=== PATIENT | male | born 1980 | race Caucasian/White ===

== ENCOUNTER 2017-07-14 09:30 | Emergency (ER) | payer BC ==
--- NOTE | 2017-07-14 10:51 | ER ---
Nurse's Notes [facility] Name: Mayco Gorman Age: 37 yrs Sex: Male : 1980 Arrival Date: 07/14/2017 Time: : Bed 17 Private MD: Diagnosis: Acute pharyngitis Presentation: 07/14 09:35 Presenting complaint: Patient states: c/o sore throat and headache that started last rb1 night with fever and chills. Transition of care: patient was not received from another setting of care. Onset of symptoms was July 13, 2017. Initial Sepsis Screen: Does the patient meet any 2 criteria? No. Patient's initial sepsis screen is negative. Does the patient have a suspected source of infection? No. Patient's initial sepsis screen is negative. Care prior to arrival: None. 09:35 Method Of Arrival: Ambulatory rb1 09:35 Acuity: ARABELLA 3 rb1 Triage Assessment: :35 General: Appears uncomfortable, obese, Behavior is calm, cooperative. General: Reports rb1 chills for fever for feeling ill for 12-24 hours. Pain: Complains of pain in Entire head and throat Pain currently is 8 out of 10 on a pain scale. Pain began 1 day ago. EENT: Throat is reddened has enlarged tonsils. Neuro: Level of Consciousness is awake, alert, obeys commands, Oriented to person, place, time, situation. Cardiovascular: Capillary refill < 3 seconds is brisk in bilateral fingers. Respiratory: Reports cough that is non-productive, Airway is patent Respiratory effort is even, unlabored, Respiratory pattern is regular, symmetrical. GI: No signs and/or symptoms were reported involving the gastrointestinal system. : No signs and/or symptoms were reported regarding the genitourinary system. Derm: Skin is pink, warm \T\ dry. Historical: - Allergies: 09:35 No Known Allergies; rb1 - Home Meds: :35 None [Active]; rb1 - PMHx: :35 Pneumonia; Bronchitis; rb1 - PSHx: :35 Adenoids; rb1 - Immunization history:: Adult Immunizations up to date. - Social history:: Smoking status: Patient uses tobacco products, smokes one pack cigarettes per day. Screenin:35 Abuse screen: Denies threats or abuse. Nutritional screening: loss of appetite. . rb1 Tuberculosis screening: No symptoms or risk factors identified. Fall Risk None identified. Assessment: 09:35 General: See triage assessment. rb1 10:30 Reassessment: Patient appears in no apparent distress at this time. No changes from rb1 previously documented assessment. Vital Signs: 09:35 BP 152 / 94; Pulse 107; Resp 19; Temp 98.7(O); Pulse Ox 95% on R/A; Weight 124.74 kg rb1 (R); Height 5 ft. 11 in. (180.34 cm) (R); Pain 8/10; 10:30 BP 152 / 92; Pulse 92; Resp 18; Pulse Ox 98% on R/A; rb1 09:35 Body Mass Index 38.35 (124.74 kg, 180.34 cm) rb1 ED Course: 09:31 Patient arrived in ED. as 09:34 Casimiro Christie NP is PHCP. pm1 09:34 Kurtis Bryant MD is Attending Physician. pm1 09:35 Arm band placed on right wrist. rb1 09:35 Patient has correct armband on for positive identification. Bed in low position. Call rb1 light in reach. Side rails up X 1. Pulse ox on. NIBP on. 09:39 Susie Caceres, RN is Primary Nurse. rb1 09:41 Triage completed. rb1 09:55 Flu Sent. rb1 09:55 Strep Sent. rb1 11:01 No provider procedures requiring assistance completed. Patient did not have IV access rb1 during this emergency room visit. Administered Medications: No medications were administered Outcome: 10:51 Discharge ordered by . pm1 11:01 Discharged to home ambulatory, with significant other. rb1 11:01 Condition: stable 11:01 Discharge instructions given to patient, Instructed on discharge instructions, follow up and referral plans. medication usage, Demonstrated understanding of instructions, follow-up care, medications, Prescriptions given X 1. 11:02 Patient left the ED. rb1 Signatures: Maria Dallas as Susie Caceres, RN RN rb1 Casimiro Christie NP SUG[employer] PLANTER pm1
--- NOTE | 2017-07-14 10:52 | EDPHYS ---
Physician Documentation [facility] Name: Mayco Gorman Age: 37 yrs Sex: Male : 1980 Arrival Date: 07/14/2017 Time: 09:31 Bed 17 Private MD: ED Physician Kurtis Bryant HPI: 07/14 10:35 This 37 yrs old Male presents to ER via Ambulatory with complaints of Flu pm1 Symptoms. 10:35 The patient presents with sore throat. The patient describes throat pain as raw, pm1 scratchy. Onset: The symptoms/episode began/occurred last night. Severity of symptoms: in the emergency department the symptoms are actually worse. Modifying factors: The symptoms are alleviated by over the counter medications, NSAIDs, the symptoms are aggravated by fluids, foods, swallowing, Patient's oral intake status: good. Associated signs and symptoms: Pertinent positives: chills, cough, flu-like symptoms, Sore throat Pertinent negatives diarrhea, nausea, vomiting. The patient has not experienced similar symptoms in the past. The patient has not recently seen a physician. Two of his children tested positive for strep and are currently taking antibiotics for it. Historical: - Allergies: 09:35 No Known Allergies; rb1 - Home Meds: 09:35 None [Active]; rb1 - PMHx: 09:35 Pneumonia; Bronchitis; rb1 - PSHx: 09:35 Adenoids; rb1 - Immunization history:: Adult Immunizations up to date. - Social history:: Smoking status: Patient uses tobacco products, smokes one pack cigarettes per day. ROS: 10:35 Eyes: Negative for injury, pain, redness, and discharge. pm1 10:35 Neck: Negative for injury, pain, and swelling, Cardiovascular: Negative for chest pain, palpitations, and edema. 10:35 Abdomen/GI: Negative for abdominal pain, nausea, vomiting, diarrhea, and constipation, Back: Negative for injury and pain, : Negative for injury, bleeding, discharge, and swelling, MS/Extremity: Negative for injury and deformity, Skin: Negative for injury, rash, and discoloration, Neuro: Negative for headache, weakness, numbness, tingling, and seizure. 10:35 Constitutional: Positive for body aches, chills, fever, Negative for poor PO intake. 10:35 ENT: Positive for sore throat, Negative for ear pain, rhinorrhea. 10:35 Respiratory: Positive for cough, with no reported sputum, Negative for dyspnea on exertion, shortness of breath, sputum production, wheezing. Exam: 10:35 Constitutional: This is a well developed, well nourished patient who is awake, alert, pm1 and in no acute distress. Head/Face: Normocephalic, atraumatic. Eyes: Pupils equal round and reactive to light, extra-ocular motions intact. Lids and lashes normal. Conjunctiva and sclera are non-icteric and not injected. Cornea within normal limits. Periorbital areas with no swelling, redness, or edema. 10:35 Chest/axilla: Normal chest wall appearance and motion. Nontender with no deformity. No lesions are appreciated. Cardiovascular: Regular rate and rhythm with a normal S1 and S2. No gallops, murmurs, or rubs. Normal PMI, no JVD. No pulse deficits. 10:35 Respiratory: Lungs have equal breath sounds bilaterally, clear to auscultation and percussion. No rales, rhonchi or wheezes noted. No increased work of breathing, no retractions or nasal flaring. Abdomen/GI: Soft, non-tender, with normal bowel sounds. No distension or tympany. No guarding or rebound. No evidence of tenderness throughout. Back: No spinal tenderness. No costovertebral tenderness. Full range of motion. Skin: Warm, dry with normal turgor. Normal color with no rashes, no lesions, and no evidence of cellulitis. MS/ Extremity: Pulses equal, no cyanosis. Neurovascular intact. Full, normal range of motion. 10:35 ENT: External ear(s): are unremarkable, Ear canal(s): are normal, TM's: are normal, Nose: is normal, Mouth: is normal, Posterior pharynx: Airway: normal, no evidence of obstruction, patent, Tonsils: bilaterally enlarged, with erythema, no exudate, no ulcerations, peritonsillar mass, is not appreciated, pooling of secretions, is not appreciated. 10:35 Neck: External neck: is normal, Lymph nodes: lymphadenopathy is appreciated, anterior cervical nodes. 10:35 Neuro: Orientation: is normal, Motor: moves all fours, Gait: is steady, at a normal pace, without difficulty. Vital Signs: 09:35 BP 152 / 94; Pulse 107; Resp 19; Temp 98.7(O); Pulse Ox 95% on R/A; Weight 124.74 kg rb1 (R); Height 5 ft. 11 in. (180.34 cm) (R); Pain 8/10; 10:30 BP 152 / 92; Pulse 92; Resp 18; Pulse Ox 98% on R/A; rb1 09:35 Body Mass Index 38.35 (124.74 kg, 180.34 cm) rb1 MDM: 09:35 Patient medically screened. pm1 10:50 Data reviewed: vital signs. Data interpreted: Pulse oximetry: on room air is 95 %. pm1 Interpretation: normal. Counseling: I had a detailed discussion with the patient and/or guardian regarding: the historical points, exam findings, and any diagnostic results supporting the discharge/admit diagnosis, lab results, the need for outpatient follow up, to return to the emergency department if symptoms worsen or persist or if there are any questions or concerns that arise at home. 07/14 09:45 Order name: Strep; Complete Time: 10:35 [facility] 07/14 09:45 Order name: Flu; Complete Time: 10:35 [facility] 07/14 10:28 Order name: Throat Culture EDMS Administered Medications: No medications were administered Disposition: 07/15 09:19 Co-signature as Attending Physician, Kurtis Bryant MD I agree with the assessment and rosana plan of care. Disposition: 07/14/17 10:51 Discharged to Home. Impression: Acute pharyngitis. - Condition is Stable. - Discharge Instructions: Pharyngitis, Salt Water Gargle. - Prescriptions for Zithromax Z- Randall 250 mg Oral Tablet - take 1 tablet by ORAL route as directed for 5 days Day 1 - take two (2) tablets one time. Day 2, 3, 4 , 5 take one (1) tablet once daily.; 6 tablet. - Work release form, Medication Reconciliation Form, Thank You Letter, Antibiotic Education form. - Follow up: Emergency Department; When: As needed; Reason: Worsening of condition. Follow up: Private Physician; When: 2 - 3 days; Reason: Recheck today's complaints, Continuance of care, Re-evaluation by your physician. - Problem is new. - Symptoms have improved. Signatures: Dispatcher [employer] EDMS Kurtis Bryant MD MD cha Barber, Rebecca RN RN rb1 Casimiro Christie, AIR OPERATIONS MANAGER AIR OPERATIONS MANAGER pm1
== END 2017-07-14 11:02 | disposition home or self-care (01) ==
LOC: ER 09:30
DX: J02.9 Acute pharyngitis, unspecified (principal); Z87.01 Personal history of pneumonia (recurrent)
CPT/HCPCS: 87070; 87081; 87804; 99283

== ENCOUNTER 2017-09-13 08:49 | Emergency (ER) | payer BC ==
[2017-09-13] MEDS ORDERED: BUPIVACAINE 0.5% PF 10 ML VIAL ONE (09:02)
[2017-09-13] MEDS ORDERED: LIDOCAINE 1% MPF 5 ML VIAL ONE (09:02)
[2017-09-13] MEDS ORDERED: LIDOCAINE 1% 20 ML MDV ONE (09:15)
--- NOTE | 2017-09-13 10:13 | ER ---
Nurse's Notes [facility] Name: Mayco Gorman Age: 37 yrs Sex: Male : 1980 Arrival Date: 09/13/2017 Time: 08:51 Bed 13 Private MD: None, None Diagnosis: Forearm Laceration Presentation: 09/13 08:58 Presenting complaint: Patient states: c/o laceration to right forearm, doesn't know how em he injured it, has hx of sleep walking, occurred between 2AM and 6AM, denies ETOH or drugs, doesn't carry knives, denies SI, approximate 2 inch lac. noted to right forearm, bleeding controlled. Transition of care: patient was not received from another setting of care. Complicating Factors: There are no complicating factors for this patient. Onset of symptoms. Risk Assessment: Do you want to hurt yourself or someone else? Patient reports no desire to harm self or others. Initial Sepsis Screen: Does the patient meet any 2 criteria? No. Patient's initial sepsis screen is negative. Does the patient have a suspected source of infection? No. Patient's initial sepsis screen is negative. Care prior to arrival: None. 08:58 Method Of Arrival: Ambulatory em 09:00 Acuity: ARABELLA 4 iw Historical: - Allergies: 09:02 No Known Allergies; em - Home Meds: 09:02 None [Active]; em - PMHx: 09:02 Bronchitis; Pneumonia; em - PSHx: 09:02 None; em - Immunization history:: Adult Immunizations up to date. - Social history:: Smoking status: unknown. - Ebola Screening: : No symptoms or risks identified at this time. Screenin:01 Abuse screen: Denies threats or abuse. Nutritional screening: No deficits noted. em Tuberculosis screening: No symptoms or risk factors identified. Fall Risk None identified. Assessment: 09:03 General: Appears in no apparent distress. comfortable, Behavior is calm, cooperative. em Pain: Denies pain. Neuro: Level of Consciousness is awake, alert, obeys commands, Oriented to person, place, time, situation. Cardiovascular: Capillary refill < 3 seconds Patient's skin is warm and dry. Respiratory: Airway is patent Respiratory effort is even, Respiratory pattern is regular, symmetrical. GI: No signs and/or symptoms were reported involving the gastrointestinal system. : No signs and/or symptoms were reported regarding the genitourinary system. EENT: No signs and/or symptoms were reported regarding the EENT system. Derm: Skin is intact, Wound noted dorsal aspect of right forearm. Musculoskeletal: Range of motion: intact in all extremities. Injury Description: Laceration sustained to right forearm is clean, 2.6 to 7.5 cm long, not bleeding, was sustained 6-12 hours ago. 10:42 Reassessment: Patient appears in no apparent distress at this time. Patient and/or em family updated on plan of care and expected duration. Pain level reassessed. Patient is alert, oriented x 3, equal unlabored respirations, skin warm/dry/pink. Patient denies pain at this time. Vital Signs: 09:02 BP 163 / 99; Pulse 86; Resp 18; Temp 98.3; Pulse Ox 96% on R/A; Weight 122.47 kg; em Height 5 ft. 11 in. (180.34 cm); Pain 0/10; 10:00 BP 157 / 92; Pulse 81; Resp 16; Pulse Ox 99% on R/A; Pain 0/10; em 09:02 Body Mass Index 37.66 (122.47 kg, 180.34 cm) em ED Course: 08:51 Patient arrived in ED. mr 08:51 None, None is Private Physician. mr 08:55 Saul Carl PA is PHCP. [facility] 08:55 Morgan Stein MD is Attending Physician. [facility] 08:58 Noé Jaimes LVN is Primary Nurse. em 09:01 Patient has correct armband on for positive identification. Bed in low position. Call em light in reach. 09:03 Arm band placed on. em 09:22 Wound care: to laceration. Wound care: CLEANED WOUND WITH BETADINE AND SALINE READY FOR 5 PROVIDER . 09:26 Assist provider with laceration repair on dorsal aspect of right forearm that was em between 2.6 to 7.5 cm using sutures. Set up tray. Performed by Saul TALAVERA Dressed with 4X4s, Kerlix, Patient tolerated well. 09:57 Triage completed. iw 10:40 Patient did not have IV access during this emergency room visit. em Administered Medications: 09:28 Drug: Lidocaine (1 %) 20 ml {Note: administered by SADAF Hughes.} Volume: 20 ml; Route: em Infiltration; Site: wound; Outcome: 10:13 Discharge ordered by . dmitri 10:40 Discharged to home ambulatory. em 10:40 Condition: good 10:40 Discharge instructions given to patient, Instructed on discharge instructions, follow up and referral plans. medication usage, Demonstrated understanding of instructions, follow-up care, medications, Prescriptions given X 1. 10:43 Patient left the ED. em Signatures: Saul Carl PA PA jmm Rivera, Maria mr Theodore, Noé, WINE BLENDER WINE BLENDER em Tamiko Kraus, RN RN Deanna Munoz [facility]
--- NOTE | 2017-09-13 10:13 | EDPHYS ---
Physician Documentation [facility] Name: Mayco Gorman Age: 37 yrs Sex: Male : 1980 Arrival Date: 09/13/2017 Time: 08:51 Bed 13 Private MD: None, None ED Physician Morgan Stein HPI: 09/13 08:58 This 37 yrs old Male presents to ER via Ambulatory with complaints of jmm Laceration To Arm. 08:58 The patient has a laceration unknown. The laceration(s) is(are) located on the right jmm forearm. Onset: The symptoms/episode began/occurred between the hours of 2 and 6 am . Associated signs and symptoms: Pertinent negatives: heavy bleeding, numbness distal to injury, suspected foreign body. Patient states he lacerated his right forearm last evening while he was sleeping. Patient states he will occasionally sleep walk. He believes the injuy may have occurred from a fall on a chain link fence. Patient is UTD on tetanus immunization. . Historical: - Allergies: 09:02 No Known Allergies; em - Home Meds: 09:02 None [Active]; em - PMHx: 09:02 Bronchitis; Pneumonia; em - PSHx: 09:02 None; em - Immunization history:: Adult Immunizations up to date. - Social history:: Smoking status: unknown. - Ebola Screening: : No symptoms or risks identified at this time. ROS: 08:58 Constitutional: Negative for fever, chills, and weight loss, Cardiovascular: Negative jmm for chest pain, palpitations, and edema, Respiratory: Negative for shortness of breath, cough, wheezing, and pleuritic chest pain, Abdomen/GI: Negative for abdominal pain, nausea, vomiting, diarrhea, and constipation. 08:58 MS/extremity: Positive for laceration. 08:58 Skin: Positive for laceration(s). 08:58 All other systems are negative. Exam: 08:58 Head/Face: atraumatic. Cardiovascular: Regular rate and rhythm. No gallops, murmurs, jmm or rubs. Full/Equal distal pulses. Respiratory: Lungs have equal breath sounds bilaterally, clear to auscultation. No rales, rhonchi or wheezes noted. No increased work of breathing, no retractions or nasal flaring. 08:58 Constitutional: The patient appears in no acute distress, alert, awake. 08:58 Musculoskeletal/extremity: ROM: intact in all extremities. 08:58 Skin: 4 cm laceration noted to the right forearm. 08:58 Neuro: Orientation: is normal, Mentation: is normal, Memory: is normal, Gait: is steady. 08:58 Psych: Behavior/mood is pleasant, cooperative. Vital Signs: 09:02 BP 163 / 99; Pulse 86; Resp 18; Temp 98.3; Pulse Ox 96% on R/A; Weight 122.47 kg; em Height 5 ft. 11 in. (180.34 cm); Pain 0/10; 10:00 BP 157 / 92; Pulse 81; Resp 16; Pulse Ox 99% on R/A; Pain 0/10; em 09:02 Body Mass Index 37.66 (122.47 kg, 180.34 cm) em Laceration: 10:11 Wound Repair of 4cm ( 1.6in ) subcutaneous laceration to right forearm. Distal jmm neuro/vascular/tendon intact. Anesthesia: Local anesthetic administered with 5 mls of Lido/Marcaine. Wound prep: Extensive cleansing with betadine by nurse by or, Copious irrigation. Skin closed with 9 4-0 Prolene using simple sutures and sterile technique. Dressed with non-adherent dressing. Patient tolerated well. MDM: 08:58 Patient medically screened. [facility] 10:11 Data reviewed: vital signs, nurses notes. [facility] 10:15 Counseling: I had a detailed discussion with the patient and/or guardian regarding: the [facility] historical points, exam findings, and any diagnostic results supporting the discharge/admit diagnosis, the presence of at least one elevated blood pressure reading (>120/80) during this emergency department visit, the need for outpatient follow up, to return to the emergency department if symptoms worsen or persist or if there are any questions or concerns that arise at home. 10:15 ED course: wound return precautions given. [facility] Administered Medications: 09:28 Drug: Lidocaine (1 %) 20 ml {Note: administered by PA. Saul} Volume: 20 ml; Route: em Infiltration; Site: wound; Disposition: 11:52 Co-signature as Attending Physician, Morgan Stein MD. rn Disposition: 09/13/17 10:13 Discharged to Home. Impression: Forearm Laceration. - Condition is Stable. - Discharge Instructions: Laceration Care, Adult. - Prescriptions for Cephalexin 500 mg Oral Capsule - take 1 capsule by ORAL route every 6 hours for 10 days; 40 capsule. - Work release form, Medication Reconciliation Form, Thank You Letter, Antibiotic Education, Prescription Opioid Use form. - Follow up: Private Physician; When: 1 week; Reason: Continuance of care. - Notes: Please keep the wound dry for 24 hours. Please return to the ED if you develop foul smelling drainage from the wound site, redness, fever, increased pain or any other concerning symptoms. Signatures: Saul Carl PA PA jmm Munoz, Edgar, BACKROOM ASSOCIATE BACKROOM ASSOCIATE em Morgan Stein MD MD rn employee health: (The following items were deleted from the chart) 10:43 10:13 09/13/2017 10:13 Discharged to Home. Impression: Forearm Laceration. Condition is em Stable. Forms are Medication Reconciliation Form, Thank You Letter, Antibiotic Education, Prescription Opioid Use. Follow up: Private Physician; When: 1 week; Reason: Continuance of care. dmitri
== END 2017-09-13 10:43 | disposition home or self-care (01) ==
LOC: ER 08:49
PROC: 0JQG0ZZ Repair Right Lower Arm Subcutaneous Tissue and Fascia, Open Approach (ICD-10-PCS; principal; 2017-09-13)
DX: S51.811A Laceration without foreign body of right forearm, initial encounter (principal); W26.8XXA Contact with other sharp object(s), not elsewhere classified, initial encounter; Y93.89 Activity, other specified; Y92.9 Unspecified place or not applicable
CPT/HCPCS: 99284

== ENCOUNTER 2018-02-23 22:51 | Emergency (ER) | payer BC, OTHER ==
[2018-02-23] MEDS ORDERED: LIDOCAINE 1% MPF 30 ML VIAL ONE (23:42)
[2018-02-24] MEDS ORDERED: HYDROCODONE/APAP 10/325 TAB ONE (00:09)
[2018-02-24] MEDS ORDERED: MORPHINE 4 MG/ML SYR ONE (00:56)
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
--- NOTE | 2018-02-24 08:23 | RAD REPORT ---
EXAM DESCRIPTION: Jennifer Jordan (2 Views)02/23/2018 11:50 pm CLINICAL HISTORY: Chest pain COMPARISON: None FINDINGS: The lungs appear clear of acute infiltrate. The heart is normal size. A displaced rib fracture is not seen on this limited exam IMPRESSION: No acute abnormalities displayed
== END 2018-02-24 02:16 | disposition home or self-care (01) ==
LOC: ER 22:51
PROC: 0JQ10ZZ Repair Face Subcutaneous Tissue and Fascia, Open Approach (ICD-10-PCS; principal; 2018-02-24)
DX: S01.512A Laceration without foreign body of oral cavity, initial encounter (principal); S20.219A Contusion of unspecified front wall of thorax, initial encounter; V28.4XXA Motorcycle driver injured in noncollision transport accident in traffic accident, initial encounter
CPT/HCPCS: 70450; 70486; 71046; 72125; 76377; 96374; 99285

== ENCOUNTER 2018-02-28 18:32 | Emergency (ER) | payer OTHER ==
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
--- NOTE | 2018-02-28 20:08 | EDPHYS ---
Physician Documentation [facility] Name: Mayco Gorman Age: 38 yrs Sex: Male : 1980 Arrival Date: 02/28/2018 Time: 18:36 Bed 23 Private MD: KIM [facility] ED Physician Brett Eldridge HPI: 02/28 20:01 This 38 yrs old Male presents to ER via Ambulatory with complaints of Wound ps1 reopened. 20:01 patient has a previously evaluated tongue laceration. He felt a stitch pop and then had ps1 some bleeding. Bleeding since resolved. Pain controlled. . Historical: - Allergies: 18:46 No Known Allergies; hb - Home Meds: 18:46 Chantix oral oral [Active]; hb - PMHx: 18:46 Bronchitis; Pneumonia; hb - PSHx: 18:46 Adenoids; hb - Immunization history:: Adult Immunizations up to date. - Social history:: Smoking status: Patient/guardian denies using tobacco. - Ebola Screening: : No symptoms or risks identified at this time. ROS: 20:01 Constitutional: Negative for fever, chills, and weight loss, Eyes: Negative for injury, ps1 pain, redness, and discharge, Cardiovascular: Negative for chest pain, palpitations, and edema, Respiratory: Negative for shortness of breath, cough, wheezing, and pleuritic chest pain, Abdomen/GI: Negative for abdominal pain, nausea, vomiting, diarrhea, and constipation, Back: Negative for injury and pain, MS/Extremity: Negative for injury and deformity, Skin: Negative for injury, rash, and discoloration, Neuro: Negative for headache, weakness, numbness, tingling, and seizure. 20:01 ENT: Positive for injury or acute deformity. Exam: 20:01 Constitutional: This is a well developed, well nourished patient who is awake, alert, ps1 and in no acute distress. Head/Face: Normocephalic, atraumatic. Eyes: Pupils equal round and reactive to light, extra-ocular motions intact. Lids and lashes normal. Conjunctiva and sclera are non-icteric and not injected. Cardiovascular: Regular rate and rhythm. No gallops, murmurs, or rubs. Normal PMI, no JVD. No pulse deficits. Respiratory: Lungs have equal breath sounds bilaterally, clear to auscultation and percussion. No rales, rhonchi or wheezes noted. No increased work of breathing, no retractions or nasal flaring. Abdomen/GI: Soft, non-tender, with normal bowel sounds. No distension or tympany. No guarding or rebound. No evidence of tenderness throughout. MS/ Extremity: Pulses equal, no cyanosis. Neurovascular intact. Full, normal range of motion. Neuro: Awake and alert, GCS 15, oriented to person, place, time, and situation. Cranial nerves II-XII grossly intact. Sensory grossly intact. 20:08 ENT: tongue has a irregular laceration with blood clot in center. Hemostasis achieved. ps1 No obvious signs of infection. . Vital Signs: 18:44 BP 148 / 86; Pulse 87; Resp 16; Temp 98.2; Pulse Ox 100% on R/A; Pain 4/10; hb MDM: 20:00 Patient medically screened. ps1 20:01 Data reviewed: vital signs, nurses notes. Counseling: I had a detailed discussion with ps1 the patient and/or guardian regarding: the historical points, exam findings, and any diagnostic results supporting the discharge/admit diagnosis, wound to heal by secondary intention at this point. Home with chlorhexidine gluconate. . Administered Medications: No medications were administered Disposition: 02/28/18 20:07 Discharged to Home. Impression: Wound dehiscense. - Condition is Stable. - Discharge Instructions: Wound Dehiscence. - Prescriptions for chlorhexidine gluconate 0.12 % Mucous Membrane mouthwash - place 15 milliliter by MUCOUS MEMBRANE route 2 times per day after brushing teeth, swish in mouth for 30 seconds then spit out; 240 milliliter. - Medication Reconciliation Form, Thank You Letter, Antibiotic Education, Prescription Opioid Use form. - [place] [facility]; When: As needed; Reason: Recheck today's complaints, Continuance of care, Re-evaluation by your physician. Follow up: Emergency Department; When: As needed; Reason: Worsening of condition. - Problem is an ongoing problem. - Symptoms have worsened. Signatures: Jeri Barreto RN RN ak1 Zulay Arreaga RN RN Brett Eldridge MD MD ps1 Corrections: (The following items were deleted from the chart) 20:16 20:07 02/28/2018 20:07 Discharged to Home. Impression: Wound dehiscense. Condition is ak1 Stable. Forms are Medication Reconciliation Form, Thank You Letter, Antibiotic Education, Prescription Opioid Use. Follow up: [facility]; When: As needed; Reason: Recheck today's complaints, Continuance of care, Re-evaluation by your physician. Follow up: Emergency Department; When: As needed; Reason: Worsening of condition. Problem is an ongoing problem. Symptoms have worsened. ps1
== END 2018-02-28 20:16 | disposition home or self-care (01) ==
LOC: ER 18:32
DX: T81.30XA Disruption of wound, unspecified, initial encounter (principal); X58.XXXA Exposure to other specified factors, initial encounter
CPT/HCPCS: 99283